=== PATIENT | male | born 1970 | race Caucasian/White ===

== ENCOUNTER 2018-07-08 19:50 | Emergency (ER) | payer OTHER ==
--- NOTE | 2018-07-08 20:05 | EDPHY ---
H & P Time Seen by Provider: 07/08/18 19:58 HPI/ROS: CHIEF COMPLAINT: Right leg pain HISTORY OF PRESENT ILLNESS: Patient is a 47-year-old male with no significant past medical history who states that he slipped on a wooden floor walking and is socks this evening and slid down 8 steps. States he has had significant swelling to the lateral aspect of his right thigh. He has been able to bear weight on the leg but reports pain to the mid femur area. Denies any groin pain , back pain, head injury, neck pain. He does report feeling nauseous. He took 2 Motrin with improvement of pain. Denies any use of blood thinners but did take a baby aspirin last night. Does report drinking 2 glasses of wine this evening. ROS As detailed in HPI Smoking Status: Never smoked Physical Exam: General: Alert and oriented. Nontoxic appearing. No acute distress HEENT: Pupils PERRLA. No oral lesions. Cardiopulmonary: Regular rate and rhythm. No lower extremity edema Skin: [place] warm and dry. Ecchymosis and swelling to the entire lateral aspect of the right femur is. Muscle skeletal: Moving all 4 extremities. Equal strength in upper extremities and lower extremities. For range of motion of the right hip and knee. No leg shortening or external rotation. Constitutional: Initial Vital Signs Temperature (C) 37.1 C 07/08/18 19:54 Heart Rate 69 07/08/18 19:54 Respiratory Rate 16 07/08/18 19:54 Blood Pressure 123/69 H 07/08/18 19:54 O2 Sat (%) 94 07/08/18 19:54 O2 Delivery Mode Room Air Allergies/Adverse Reactions: No Known Allergies Allergy (Unverified 07/08/18 19:53) Home Medications: Medication Instructions Recorded Atorvastatin Calcium 07/08/18 Hydrocodone/APAP 5/325 [[place] 1 tab PO Q6 PRN #8 tab 07/08/18 5/325 (*)] Ondansetron Odt [Zofran Odt 4 mg 4 mg PO Q8 PRN #8 tab 07/08/18 (*)] Synthroid 07/08/18 Medical Decision Making - Diagnostics Imaging Results: Imaging Impressions Pelvis X-Ray 07/08/18 20:05 Impression: 1. Negative AP pelvis radiograph. Femur X-Ray 07/08/18 20:06 Impression: 1. Negative right femur radiographs. ED Course/Re-evaluation: 47-year-old male here with right leg pain and swelling after slip and fall a sliding down 8 steps. He does have significant swelling to the lateral aspect of the right thigh but there is no deformity is neurovascular intact and has full range of motion of the hip and knee and x-rays reveal no acute bony process. Patient is reassured and feels significantly improved after Zofran and [place]. Remainder of exam reveals evidence of injury to the chest, abdomen, head or neck. Differential Diagnosis: Skull fracture, intracranial bleed, hip fracture, femur fracture - Data Points Medications Given: Discontinued Medications Hydrocodone Bitart/Acetaminophen ([place] 5/325) 1 tab PO EDNOW ONE Stop: 07/08/18 20:07 Last Admin: 07/08/18 20:15 Dose: 1 tab Ondansetron HCl (Zofran Odt) 4 mg PO ONCE ONE Stop: 07/08/18 20:08 Last Admin: 07/08/18 20:14 Dose: 4 mg Departure - Departure Disposition: Home, Routine, Self-Care Clinical Impression: Contusion of thigh, right Condition: Good Instructions: Contusion in Adults (ED) Referrals: PANCHO BAKER [Other] - As per Instructions Prescriptions: Hydrocodone/APAP 5/325 [[place] 5/325 (*)] 1 tab PO Q6 PRN #8 tab PRN Reason: Pain, Moderate Ondansetron Odt [Zofran Odt 4 mg (*)] 4 mg PO Q8 PRN #8 tab PRN Reason: Nausea/Vomiting, Use 1st
[2018-07-08] MEDS ORDERED: HYDROCODONE/APAP 5/325 TAB PO ONE (20:06)
[2018-07-08] MEDS ORDERED: ONDANSETRON DISINTEGRATING 4 MG TAB PO ONE (20:07)
[2018-07-08 21:28] VITALS: BP 115/61
== END 2018-07-08 21:28 | disposition home or self-care (01) ==
DX: S70.11XA Contusion of right thigh, initial encounter (principal); W10.9XXA Fall (on) (from) unspecified stairs and steps, initial encounter; Y99.9 Unspecified external cause status